=== PATIENT | female | born 1990 | race Caucasian/White ===

== ENCOUNTER 2017-08-25 13:18 | Emergency (ER) | payer OTHER ==
[~2017-08-25] VITALS: Ht 157.5 cm; Wt 52.8 kg
[2017-08-25] MEDS ORDERED: KETOROLAC 30 MG/1 ML ONE (13:37)
[2017-08-25] MEDS ORDERED: MORPHINE SULFATE 4 MG/ML, 1ML ONE (13:37)
[2017-08-25] MEDS ORDERED: ONDANSETRON 2MG/ML, 2ML ONE (13:37)
[2017-08-25] MEDS ORDERED: ESCI20TA10 PO (13:58)
[2017-08-25] MEDS ORDERED: MORPHINE SULFATE 4 MG/ML, 1ML IVPush PRN (14:00)
[2017-08-25] MEDS ORDERED: SODIUM CHLORIDE FLUSH 10ML SYR IVF ONE (14:00)
[2017-08-25] MEDS ORDERED: ONDANSETRON 2MG/ML, 2ML IVPush ONE (14:00)
[2017-08-25] MEDS ORDERED: SODIUM CHLORIDE 0.9% 1,000ML IV ONE (14:00)
[2017-08-25] MEDS ORDERED: KETOROLAC 30 MG/1 ML IVPush ONE (14:00)
[2017-08-25 14:11] LABS: HEMATOCRIT 42.1 % (34.6-47.8); HEMOGLOBIN 14.3 g/dL (11.7-16.4); WHITE BLOOD COUNT 10.7 x10^3/uL (3.4-10)
[2017-08-25 14:23] LABS: BLOOD UREA NITROGEN 9 mg/dL (7-18)
[2017-08-25 16:00] VITALS: BP 110/65
== END 2017-08-25 16:02 | disposition home or self-care (01) ==
LOC: ED 15:41
DX: N30.01 Acute cystitis with hematuria (principal); Z88.6 Allergy status to analgesic agent
CPT/HCPCS: 36415; 74176; 80048; 81001; 82040; 84703; 85025; 87077; 87086; 87186; 96361; 96374; 96375; 99285; J1885; J2405; J7030